=== PATIENT | female | born 1990 | race Caucasian/White ===

== ENCOUNTER 2019-04-15 11:18 | Emergency (ER) | payer SELFPAY ==
[2019-04-15] MEDS: ACETAMINOPHEN 325 MG TAB PO (13:27)
== END 2019-04-15 14:02 | disposition home or self-care (01) ==
LOC: FTE 11:18
DX: S60.222A Contusion of left hand, initial encounter (principal); W23.0XXA Caught, crushed, jammed, or pinched between moving objects, initial encounter; Y92.9 Unspecified place or not applicable
CPT/HCPCS: 29125; 73130-LT; 99283-25